=== PATIENT | female | born 1990 | race Two or more races ===

== ENCOUNTER → 2022-11-03 | Outpatient (CLI) | payer OTHER | LOC: M PLARAD 08:23 | PROVIDERS: ATTEND Physician Assistant | DX: M25.569 Pain in unspecified knee (principal) ==

== ENCOUNTER 2023-03-06 16:59 | Emergency (ER) | payer OTHER ==
[~2023-03-06] VITALS: Ht 170.2 cm; Wt 68.1 kg
[2023-03-06] MEDS ORDERED: ACETAMINOPHEN TAB 650MG DOSE (2X325MG) PO ONE (18:55)
[2023-03-06] MEDS ORDERED: ACETAMINOPHEN 160MG/5ML SUSP UDC DYE-FREE PO ONE (20:15)
[2023-03-06 21:29] LABS: HEMATOCRIT 39.8 % (36.0-47.0); HEMOGLOBIN 13.5 g/dl (12.0-15.5); MEAN CORPUSCULAR HEMOGLOBIN 26.4 pg (27.0-33.0); MEAN CORPUSCULAR HGB CONC 33.9 g/dl (32.0-36.5); MEAN CORPUSCULAR VOLUME 77.7 fl (80.0-96.0); PLATELET COUNT, AUTOMATED 244 10^3/uL (150-450); RED BLOOD COUNT 5.12 10^6/uL (4.00-5.40); WHITE BLOOD COUNT 5.1 10^3/uL (4.0-10.0)
[2023-03-06] MEDS ORDERED: ISOVUE-370 76% 100ML VIAL As Ordered ONE (21:34)
[2023-03-06 22:14] VITALS: BP 113/73; TEMP 99; O2SAT 99
[2023-03-06] MEDS ORDERED: BROM118S38 PO (22:20)
== END 2023-03-06 22:29 | disposition home or self-care (01) ==
LOC: M ED 16:59
DX: J20.5 Acute bronchitis due to respiratory syncytial virus (principal)
CPT/HCPCS: 71275; 80047; 84702; 85027; 87486; 87581; 87633; 87798; 93005; 99284; Q9967